=== PATIENT | female | born 1985 | race Caucasian/White ===

== ENCOUNTER 2016-09-11 09:37 | Emergency (ER) | payer SELFPAY ==
[~2016-09-11] VITALS: Ht 162.6 cm; Wt 82.9 kg
[2016-09-11 09:50] VITALS: BP 134/61
== END 2016-09-11 10:52 | disposition home or self-care (01) ==
LOC: ED 10:02
DX: S69.91XA Unspecified injury of right wrist, hand and finger(s), initial encounter (principal); X58.XXXA Exposure to other specified factors, initial encounter; Y93.89 Activity, other specified; Y92.69 Other specified industrial and construction area as the place of occurrence of the external cause; Y99.8 Other external cause status
CPT/HCPCS: 29125